=== PATIENT | male | born 1930 | race Caucasian/White ===

== ENCOUNTER 2016-10-01 12:04 | Inpatient (IN) | payer MEDICARE, OTHER ==
[2016-10-01] MEDS ORDERED: BUDESONIDE 0.5MG/2ML AMPUL.NEB NEB ONE (12:11)
[2016-10-01] MEDS ORDERED: IPRATROPIUM/ALBUTEROL SULFATE 3 ML AMPUL.NEB NEB ONE ×2 (12:11→12:22)
[2016-10-01] MEDS: BUDESONIDE 0.5MG/2ML AMPUL.NEB NEB SCH ×4 (12:30→23:58)
[2016-10-01 12:31] LABS: BASOPHILS % 0.6 (0.0-1.5); EOSINOPHILS % 2.8 % (0.0-6.8); MEAN CORPUSCULAR VOLUME 88.6 fl (80.0-100.0); MONOCYTES % 4.4 % (0.0-11.0); NEUTROPHILS # 7.8 # k/uL (1.4-7.7)
[2016-10-01 12:42] LABS: eGFR (African) > 60; eGFR (Non-African) > 60
[2016-10-01] MEDS ORDERED: methylPREDNISolone SOD SUCC 125 MG/2 ML VIAL IVP ONE (13:32)
[2016-10-01] MEDS ORDERED: ALBUTEROL SULFATE 2.5 MG/3 ML AMPUL.NEB NEB ONE (13:32)
--- NOTE | 2016-10-01 14:07 | ED Physician Documentation ---
Dyspnea - HISTORIAN Historian: other ([facility] records) - HPI Stated Complaint: SOA Chief Complaint: Dyspnea Additional Information: fever, soa at [facility] Onset: hours (4) Duration: continues in ED Initiating Event: other (suspected pneumonia) Severity: moderate Exacerbated By: nothing Associated Symptoms: fever Further Comments: no - ROS CONST: weakness EYES/ENT: none GI/: none NEURO/PSYCH: denies: headache MS/SKIN/LYMPH: none - PAST HX Lung Disease: COPD Cardiac Disease: CAD PE Risk Factors: hypertension Other History: other (ortho, cardiac stenting, cardaic ablation) Immunizations: referred to PCP Allergies/Adverse Reactions: Allergies Allergy/AdvReac Type Severity Reaction Status Date / Time aspirin Allergy Verified 10/01/16 12:29 Home Medications: Ambulatory Orders Medication Instructions Recorded Albuterol Sulfate [Albuterol 1 inh INH TID PRN 10/01/16 Sulfate] Carvedilol [Coreg] 3.125 mg PO BID 10/01/16 Cholecalciferol [Vitamin D-3] 3,000 units PO DAILY 10/01/16 Furosemide [Furosemide] 20 mg PO BID 10/01/16 Ipratropium/Albuterol Sulfate 3 ml INH BID 10/01/16 [Duoneb] Levothyroxine Sodium [Synthroid] 125 mcg PO DAILY 10/01/16 Lisinopril [Lisinopril] 2.5 mg PO DAILY 10/01/16 Pregabalin [Lyrica] 75 mg PO BID 10/01/16 Ropinirole HCl [Requip] 0.5 mg PO TID 10/01/16 Tiotropium [place] [Spiriva] 2 inh IH QD 10/01/16 Tramadol HCl [Ultram] 50 mg PO TID PRN 10/01/16 - SOCIAL HX Smoking History: quit greater than 1 year Alcohol Use: none Drug Use: none - FAMILY HX Family History: no significant history - VITAL SIGNS Vital Signs: Vital Signs Temp Pulse Resp BP Pulse Ox 101 F H 120 H 30 H 85/57 80 L 10/01/16 12:05 10/01/16 12:05 10/01/16 12:05 10/01/16 12:05 10/01/16 12:05 - REVIEWED ASSESSMENTS Nursing Assessment Reviewed: Yes Vitals Reviewed: Yes Progress - Results/Orders Results/Orders: cbc, cmp, ua, trop, ekg, cxr, abg ordered - Progress Progress: [facility] Gotti - admitted to inpatient Critical Care Note - Critical Care Note Total Time (mins): 0 ED Results Lab/Radiology - Lab Results Lab Results: Lab Results 10/01/16 10/01/16 10/01/16 12:25 12:25 12:25 WBC 10.60 K/ul K/ul (4.00-12.00) RBC 4.22 M/ul M/ul (3.90-5.20) Hgb 12.6 g/dL g/dL (12.0-18.0) Hct 37.4 % % (37.0-53.0) MCV 88.6 fl fl (80.0-100.0) MCH 30.0 pg pg (28.0-34.0) MCHC 33.8 g/dL g/dL (30.0-36.0) RDW 14.8 % H % (11.3-14.3) Plt Count 234 K/mm3 K/mm3 (130-400) Neut % (Auto) 73.7 % % (39.0-79.0) Lymph % (Auto) 17.9 % % (16.0-50.0) [place] % (Auto) 4.4 % % (0.0-11.0) Eos % (Auto) 2.8 % % (0.0-6.8) Baso % (Auto) 0.6 (0.0-1.5) Neut # (Auto) 7.8 # k/uL H # k/uL (1.4-7.7) Lymph # (Auto) 1.9 # k/uL # k/uL (0.6-4.0) [place] # (Auto) 0.5 # k/uL # k/uL (0.0-0.9) Eos # (Auto) 0.3 # k/uL # k/uL (0.0-0.6) Baso # (Auto) 0.1 # k/uL # k/uL (0.0-0.5) Reactive Lymphs % 0.6 % % (0.0-5.0) Reactive Lymphs # 0.1 # k/uL # k/uL (0.0-0.8) Sodium 130 mmol/L L mmol/L (136-145) Potassium 4.5 mmol/L mmol/L (3.5-5.0) Chloride 90 mmol/L L mmol/L (98-110) Carbon Dioxide 34 mmol/L H mmol/L (20-32) BUN 21 mg/dL mg/dL (10-26) Creatinine 1.1 mg/dL mg/dL (0.4-1.5) Estimated Creat Clear 76 Est GFR ( Amer) > 60 (60 - ) Est GFR (Non-Af Amer) > 60 (60 - ) Glucose 119 mg/dL H mg/dL (70-99) Calcium 9.8 mg/dL mg/dL (8.5-10.5) Total Bilirubin 0.7 mg/dL mg/dL (0.2-1.2) AST 19 U/L U/L (0-41) ALT 11 U/L U/L (0-45) Alkaline Phosphatase 69 U/L U/L (46-116) Troponin I < 0.03 ng/mL L ng/mL (0.03-0.06) Total Protein 8.7 g/dL H g/dL (6.0-8.5) Albumin 4.7 g/dL g/dL (3.0-5.5) - Radiology Radiology Impressions: cxr copd - Orders Orders: ED Orders Category Date Time Status Place IV Lock 1T Care 10/01/16 12:22 Active CHEST 1 VIEW [RAD] Routine Exams 10/01/16 Ordered ARTERIAL BLOOD GAS Stat Lab 10/01/16 12:15 Ordered BLOOD CULTURE Routine Lab 10/01/16 12:40 Received CBC/PLATELET/DIFF Routine Lab 10/01/16 12:25 Completed CMP Routine Lab 10/01/16 12:25 Completed TROPONIN I (cTnI) Routine Lab 10/01/16 12:25 Completed URINALYSIS Routine Lab 10/01/16 12:21 Ordered Albuterol Sulfate [Ventolin] Med 10/01/16 13:32 Discontinued 2.5 mg NEB NOW ONE Budesonide [Pulmicort] Med 10/01/16 12:11 Discontinued 0.5 mg NEB .STK-MED ONE Budesonide [Pulmicort] Med 10/01/16 13:00 Ordered 0.5 mg NEB BID Ipratropium/Albuterol Sulfate [Duoneb] Med 10/01/16 12:11 Discontinued 3 ml NEB .STK-MED ONE Ipratropium/Albuterol Sulfate [Duoneb] Med 10/01/16 12:22 Discontinued 3 ml NEB NOW ONE methylPREDNISolone SOD SUCC [Solu-MEDROL] Med 10/01/16 13:32 Discontinued 125 mg IVP NOW ONE Oxygen Daily Oxygen 10/01/16 12:30 Ordered EKG WITH COMPARISON Routine Ther 10/01/16 Ordered Transfer Routine Transfer 10/01/16 Ordered Dyspnea Physical Exam - EXAM General Appearance: alert, moderate distress EENT: eye inspection normal, ENT inspection normal, pharynx normal, no signs of dehydration, JOCELINE, no nystagmus, TM's nml Neck: nml inspection Respiratory: wheezes CVS: reg. rate & rhythm, no murmur Abdomen: non-tender, no organomegaly, no distention, no ascites Skin: color nml, no rash, diaphoresis. No: cyanosis Extremities: non-tender, normal range of motion, no evidence of injury, no edema Neuro/Psych: oriented x3, CN's nml as tested, motor nml, sensation nml Discharge Clincal Impression: COPD exacerbation Home Medications: Ambulatory Orders Albuterol Sulfate [Albuterol Sulfate] 1 inh INH TID PRN 10/01/16 Carvedilol [Coreg] 3.125 mg PO BID 10/01/16 Cholecalciferol [Vitamin D-3] 3,000 units PO DAILY 10/01/16 Furosemide [Furosemide] 20 mg PO BID 10/01/16 Ipratropium/Albuterol Sulfate [Duoneb] 3 ml INH BID 10/01/16 Levothyroxine Sodium [Synthroid] 125 mcg PO DAILY 10/01/16 Lisinopril [Lisinopril] 2.5 mg PO DAILY 10/01/16 Pregabalin [Lyrica] 75 mg PO BID 10/01/16 Ropinirole HCl [Requip] 0.5 mg PO TID 10/01/16 Tiotropium [place] [Spiriva] 2 inh IH QD 10/01/16 Tramadol HCl [Ultram] 50 mg PO TID PRN 10/01/16 Condition: Stable Disposition: 09 ADMITTED INPATIENT Decision to Admit: [id number] Date of Decison to Admit: 10/01/16 Decision Time: 13:15
--- NOTE | 2016-10-01 14:22 | Diagnostic Imaging Report ---
BOLIVAR HINKLE [facility] [address] [facility].[address] [address] Report Submission Date: Oct 01, 2016 12:44:43 PM CDT Patient Study Name: ALLEN BELLE Date: Oct 01, 2016 12:23:52 PM CDT Modality Type: CR Gender: M Description: CHEST : 34 Institution: [facility] Physician: BOLIVAR HINKLE Examination: Portable chest History: Dyspnea Findings: Single view of the chest demonstrates a hypoventilated is but or effort. Crowding of the parenchymal interstitium. No obvious blunting of the costophrenic margins. Osseous structures are appropriate for age Impression: Poor inspiratory effort with vascular/interstitial prominence. Consider obtaining a formal PA and lateral film to better evaluate. Electronically signed on Oct 01, 2016 12:44:43 PM CDT by: Renzo ARMAS
[2016-10-01] MEDS ORDERED: IPRATROPIUM/ALBUTEROL SULFATE 3 ML AMPUL.NEB NEB PRN (14:30)
[2016-10-01] MEDS ORDERED: traMADol HCL 50 MG TABLET PO PRN (14:30)
[2016-10-01] MEDS ORDERED: NORMAL SALINE ADD-VANTAGE 50 ML IV ONE (14:59)
[2016-10-01] MEDS ORDERED: cefTRIAXone SODIUM ADVANTAGE 1 GM VIAL.PORT IV ONE (14:59)
[2016-10-01] MEDS: cefTRIAXone SODIUM ADVANTAGE 1 GM in NORMAL SALINE ADD-VANTAGE 50 ML IV SCH (15:00)
[2016-10-01] MEDS: 0.9 % SODIUM CHLORIDE 1,000 ML IV SCH (15:00)
[2016-10-01] MEDS: ENOXAPARIN SODIUM 30 MG/0.3 ML DISP.SYRIN SQ SCH (15:00)
[2016-10-01 15:35] VITALS: BMI 36.5
[2016-10-01] MEDS: AZITHROMYCIN 500 MG in 0.9 % SODIUM CHLORIDE 250 ML IV SCH (15:45)
[2016-10-01] MEDS ORDERED: 0.9 % SODIUM CHLORIDE 250 ML IV ONE (16:10)
[2016-10-01] MEDS: LEVOTHYROXINE SODIUM 100 MCG TABLET PO SCH (16:10)
[2016-10-01] MEDS ORDERED: AZITHROMYCIN 500 MG VIAL IV ONE (16:11)
[2016-10-01] MEDS: rOPINIRole HCL 1 MG TABLET PO SCH (17:14)
--- NOTE | 2016-10-01 18:29 | History and Physical Report ---
History of Present Illnes - History of Present Illness Reason for Visit: dyspnea History of Present Illness: 86yo white male with a history of COPD. This AM was found to be running a fever and started to have some increasing SOB/dyspnea. Started a productive cough of some green phlegm, denied any hemphysis. Nursing staff note some increasing rhonchi and wheezing and required increasing amounts of supplementle oxygen to maintain SaO2 > 90%. Patient was brought to the Ed for evaluation. X-ray did not show any pneumonia but was felt to have an early phuemonia or bronchitis with exacerbation of COPD. Patient admitted for further evaluation and treatment. 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, s/p subdural hematoma) Musculoskeletal: Osteoarthritis ENT: Allergic rhinitis, Other (macular degeneration) Endocrine: Hypothyroidism Dermatology: Other (nonsquamous cell Ca ) - Past Surgical History Past Surgical History: Other (cardiac stenting, cardiac ablation), Other ( facial reconstruction, R shoulder arthroscopy) - Past Family History Father Family History: (93yo of advanced age) Mother Family History: (89 of advanced age) brothers Family History: (4 from unkown cause, one living) Sisters Family History: (# deased from unkown cause) - Past Social History Smoke: # pack years (30), Quit 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 negative: Weakness, Malaise Eyes: negative: pain, vision change, eyelid inflammation ENT: Nose Discharge (clear). negative: Ear Pain, Ear Discharge, Nose Pain, Nose Congestion, Mouth Pain, Mouth Swelling, Throat Pain, Throat Swelling Respiratory: Cough, Shortness of Breath, SOB with Excertion, Sputum (green), Wheezing. negative: Dry, Hemoptysis, Pleuritic Pain Cardiovascular: negative: Chest Pain, Palpitations, Paroxysmal Noc. Dyspnea, Edema, Light Headedness Gastrointestinal: negative: Nausea, Vomiting, Abdominal Pain, Diarrhea, Constipation, Melena, Hematochezia Genitourinary: negative: Dysuria, Frequency, Incontinence, Hematuria, Retention Musculoskeletal: Back Pain. negative: Neck Pain, Shoulder Pain, Hand Pain, Leg Pain Skin: negative: Rash Neurological: Confusion. negative: Weakness, Numbness, Incoordination, Change in Speech - Medications/Allergies Allergies/Adverse Reactions: Allergies Allergy/AdvReac Type Severity Reaction Status Date / Time aspirin Allergy Verified 10/01/16 12:29 Home Medications: Home Medications Albuterol Sulfate [Albuterol Sulfate] 1 inh INH TID PRN 10/01/16 Carvedilol [Coreg] 3.125 mg PO BID 10/01/16 Cholecalciferol [Vitamin D-3] 3,000 units PO DAILY 10/01/16 Furosemide [Furosemide] 20 mg PO BID 10/01/16 Ipratropium/Albuterol Sulfate [Duoneb] 3 ml INH BID 10/01/16 Levothyroxine Sodium [Synthroid] 125 mcg PO DAILY 10/01/16 Lisinopril [Lisinopril] 2.5 mg PO DAILY 10/01/16 Pregabalin [Lyrica] 75 mg PO BID 10/01/16 Ropinirole HCl [Requip] 0.5 mg PO TID 10/01/16 Tiotropium [place] [Spiriva] 2 inh IH QD 10/01/16 Tramadol HCl [Ultram] 50 mg PO TID PRN 10/01/16 Current Inpatient Medications: Current Inpatient Medications Albuterol/Ipratropium (Duoneb) 3 ml NEB Q4 PRN PRN Reason: Wheezing Budesonide (Pulmicort) 0.5 mg NEB BID [facility] Last Admin: 10/01/16 12:30 Dose: 0.5 mg Budesonide (Pulmicort) 0.5 mg NEB BID [facility] Last Admin: 10/01/16 14:34 Dose: Not Given Carvedilol (Coreg) 3.125 mg PO BID [facility] Cholecalciferol (Vitamin D-3) unit PO DAILY [facility] Enoxaparin Sodium (Lovenox) 30 mg SQ QD [facility] Stop: 10/14/16 14:31 Last Admin: 10/01/16 15:00 Dose: 30 mg Furosemide (Lasix) 20 mg PO BID [facility] Azithromycin 500 mg/ Sodium (Chloride) 250 mls @ 125 mls/hr IV Q24H [facility] Stop: 10/11/16 14:29 Last Admin: 10/01/16 15:45 Dose: 125 mls/hr Ceftriaxone Sodium 1 gm/ (Sodium Chloride) 50 mls @ 100 mls/hr IV QD [facility] Last Admin: 10/01/16 15:00 Dose: 100 mls/hr Sodium Chloride (Normal Saline) 1,000 mls @ 42 mls/hr IV Q10H [facility] Last Admin: 10/01/16 15:00 Dose: 42 mls/hr Levothyroxine Sodium (Synthroid) 125 mcg PO 0700 [facility] Last Admin: 10/01/16 16:10 Dose: Not Given Lisinopril (Prinivil) 2.5 mg PO DAILY [facility] Methylprednisolone Sodium Succinate (Solu-Medrol) 125 mg IVP Q12 [facility] Pregabalin (Lyrica) 75 mg PO BID [facility] Ropinirole HCl (Requip) 0.5 mg PO TID [facility] Last Admin: 10/01/16 17:14 Dose: 0.5 mg Tramadol HCl (Ultram) 50 mg PO TID PRN PRN Reason: PAIN Exam - Exam Vital Signs: Vital Signs (72 hours) 10/01/16 10/01/16 10/01/16 14:09 14:30 15:30 Temperature 98.4 F Pulse Rate 113 H 106 H Pulse Rate [ 110 H Left] Respiratory 20 Rate Blood Pressure 83/53 [Left Arm] O2 Sat by Pulse 92 92 Oximetry 10/01/16 10/01/16 10/01/16 16:00 17:00 18:00 Temperature 96.2 F L Pulse Rate 102 H 112 H 101 H Pulse Rate [ 107 H Left] Respiratory 20 Rate Blood Pressure 84/49 [Left Arm] O2 Sat by Pulse 92 Oximetry General: Alert, Oriented to Person, Cooperative, Mild distress. No: Oriented to Place, Oriented to Time HEENT: Atraumatic, PERRLA, EOMI, Mouth Mucous membr. moist/[place], Nose Mucous membr. moist/[place], Poor Dentition Neck: Normal Range of Motion Carotids: WNL Thyroid: WNL Lungs: Normal air movement, Speaks full Sentences, Wheezes, Rales, Rhonchi. No : Prolonged Expiration Cardiovascular: Regular rate (occasional PAC), Normal S1, Normal S2, No murmurs Murmur: No: Systolic Murmur Abdomen: Normal bowel sounds, Soft, No tenderness, No hepatospenomegaly, No masses Integumentary: Normal, [place], Warm, Dry Extremities: No clubbing, No cyanosis, No edema, Normal pulses, No tenderness/ swelling Neurological: Normal gait, Normal speech, Strength Equal Bilat, Normal tone, Sensation intact, Cranial nerves 3-12 NL, Reflexes 2+ Psych/Mental Status: Mood NL, Appropriate Affect. No: Mental status NL ( confused), Intact Judgment Assessment/Plan - Assessment/Plan (1) CAD (coronary artery disease) Status: Acute Current Visit: Yes (2) Peripheral neuropathy Status: Acute Current Visit: Yes (3) Hypothyroidism Status: Acute Current Visit: Yes (4) Generalized OA Status: Acute Current Visit: Yes (5) Hx of supraventricular tachycardia Status: Acute Current Visit: Yes VTE Assessment - RISK FACTOR SCORE VTE RISK FACTOR SCORES: AGE OVER 60 YEARS, ACUTE RESPIRATORY FAILURE/SEVERE COPD , ANTICIPATED BED CONFINEMENT OR IMMOBILIZATION > 24 HOURS - RISK VTE HIGH RISK: SCORE OF 3-4 (RISK PROXIMAL DVT 4-8%) PROPHYLAXIS NEEDED
[2016-10-01] MEDS ORDERED: SALINE FLUSH 10 ML DISP.SYRIN IVF ONE (19:21)
[2016-10-01] MEDS: PREGABALIN 50 MG CAPSULE PO SCH ×2 (19:38→19:59)
[2016-10-01] MEDS: CARVEDILOL 6.25 MG TABLET PO SCH (19:39)
[2016-10-01] MEDS: FUROSEMIDE 20 MG TABLET PO SCH (19:40)
[2016-10-01] MEDS: IPRATROPIUM/ALBUTEROL SULFATE 3 ML AMPUL.NEB NEB SCH (20:47)
[2016-10-01] MEDS ORDERED: PREGABALIN 50 MG CAPSULE PO SCH (21:00)
[2016-10-01] MEDS: methylPREDNISolone SOD SUCC 125 MG/2 ML VIAL IVP SCH (21:47)
[2016-10-02] MEDS: 0.9 % SODIUM CHLORIDE 1,000 ML IV SCH ×3 (00:56→19:53)
[2016-10-02] MEDS: IPRATROPIUM/ALBUTEROL SULFATE 3 ML AMPUL.NEB NEB SCH ×6 (04:25→20:19)
[2016-10-02] MEDS ORDERED: LEVOTHYROXINE SODIUM 25 MCG TABLET ONE (05:13)
[2016-10-02] MEDS: LEVOTHYROXINE SODIUM 100 MCG TABLET PO SCH (05:42)
[2016-10-02 06:05] LABS: BASOPHILS % 0.1 (0.0-1.5); EOSINOPHILS % 0.1 % (0.0-6.8); MEAN CORPUSCULAR HEMOGLOBIN 29.6 pg (28.0-34.0); MEAN CORPUSCULAR VOLUME 88.6 fl (80.0-100.0); MONOCYTES % 0.8 % (0.0-11.0); NEUTROPHILS # 7.6 # k/uL (1.4-7.7)
[2016-10-02 06:23] LABS: eGFR (African) > 60; eGFR (Non-African) > 60
--- NOTE | 2016-10-02 07:09 | Diagnostic Imaging Report ---
BOLIVAR WILLAMS [facility] [address] [facility] [address] [place], [place]. [address] Report Submission Date: Oct 02, 2016 7:04:03 AM CDT Patient Study Name: ALLEN BELLE Date: Oct 02, 2016 6:27:11 AM CDT Modality Type: CR Gender: M Description: CHEST : 34 Institution: [facility] Physician: BOLIVAR HINKLE 2 views of the chest History: LOW 02 RATE Comparison: October 01, 2016 Heart is normally from size. Prominent pulmonary hilum. Scarring in the right upper lobe again noted. Infrahilar infiltrate/atelectasis is more prominent on the right. Emphysema. Bibasilar atelectasis. No pleural effusion. No acute osseous pathology Impression: 1. Infrahilar infiltrate/atelectasis persists, right greater than left. No pleural effusion. 2. Right upper lobe scarring/ opacity with spiculation, underlying malignancy is difficult to exclude. Consider elective CT chest Electronically signed on Oct 02, 2016 7:04:03 AM CDT by: Sydnie ARMAS
[2016-10-02] MEDS: CARVEDILOL 6.25 MG TABLET PO SCH ×2 (08:42→19:46)
[2016-10-02] MEDS: FUROSEMIDE 20 MG TABLET PO SCH ×2 (08:47→19:47)
[2016-10-02] MEDS: rOPINIRole HCL 1 MG TABLET PO SCH ×3 (08:48→17:04)
[2016-10-02] MEDS: LISINOPRIL 2.5 MG TABLET PO SCH (08:49)
[2016-10-02] MEDS: PREGABALIN 50 MG CAPSULE PO SCH ×2 (09:01→19:48)
[2016-10-02] MEDS: CHOLECALCIFEROL 1,000 UNIT TABLET PO SCH (09:02)
[2016-10-02] MEDS: methylPREDNISolone SOD SUCC 125 MG/2 ML VIAL IVP SCH (09:17)
[2016-10-02] MEDS: BUDESONIDE 0.5MG/2ML AMPUL.NEB NEB SCH ×2 (09:23→20:18)
[2016-10-02] MEDS: cefTRIAXone SODIUM ADVANTAGE 1 GM in NORMAL SALINE ADD-VANTAGE 50 ML IV SCH (13:29)
[2016-10-02] MEDS: ENOXAPARIN SODIUM 30 MG/0.3 ML DISP.SYRIN SQ SCH (13:30)
[2016-10-02] MEDS: AZITHROMYCIN 500 MG in 0.9 % SODIUM CHLORIDE 250 ML IV SCH (14:17)
--- NOTE | 2016-10-02 16:09 | Inpatient Progress Note ---
Subjective - Required Recertification Statement I anticipate X number of days because-include discharge plan: 1 - Review of Systems Events since last encounter: Patient states that he is doing better today. Still has a cough but is less productive. Is still having some dyspnea with walking. Requires oxygen at 2 liters. Has been slightly more confused today. Objective - Exam Vitals and I&O: Vital Signs Temp 96.8 F L 10/02/16 14:00 Pulse 93 H 10/02/16 14:00 Resp 20 10/02/16 14:00 BP 91/62 10/02/16 14:00 Pulse Ox 92 10/02/16 14:00 Intake & Output 10/01/16 10/02/16 10/02/16 23:59 11:59 23:59 Intake Total 240 2280 2160 Output Total 600 Balance 240 1680 2160 Weight 132.449 kg 132.449 kg Intake: IV 1440 1440 Right Antecubital 1440 1440 Oral 240 840 720 Output: Urine 600 Other: Voiding Method Urinal # Voids 1 General: Alert, Oriented to Person, Cooperative. No: Oriented to Place, Oriented to Time Neck: Supple, No JVD Lungs: Normal air movement, Speaks full Sentences, Rales (right base), Rhonchi ( bilat). No: Prolonged Expiration Cardiovascular: Regular rate, Normal S1, Normal S2 Abdomen: Normal bowel sounds, Soft, No tenderness - Results Results: Laboratory Results WBC 8.70 K/ul (4.00-12.00) 10/02/16 06:00 RBC 4.05 M/ul (3.90-5.20) 10/02/16 06:00 Hgb 12.0 g/dL (12.0-18.0) 10/02/16 06:00 Hct 35.9 % (37.0-53.0) L 10/02/16 06:00 MCV 88.6 fl (80.0-100.0) 10/02/16 06:00 MCH 29.6 pg (28.0-34.0) 10/02/16 06:00 MCHC 33.4 g/dL (30.0-36.0) 10/02/16 06:00 RDW 14.8 % (11.3-14.3) H 10/02/16 06:00 Plt Count 214 K/mm3 (130-400) 10/02/16 06:00 Neut % (Auto) 87.2 % (39.0-79.0) H 10/02/16 06:00 Lymph % (Auto) 11.6 % (16.0-50.0) L 10/02/16 06:00 [place] % (Auto) 0.8 % (0.0-11.0) 10/02/16 06:00 Eos % (Auto) 0.1 % (0.0-6.8) 10/02/16 06:00 Baso % (Auto) 0.1 (0.0-1.5) 10/02/16 06:00 Neut # (Auto) 7.6 # k/uL (1.4-7.7) 10/02/16 06:00 Lymph # (Auto) 1.0 # k/uL (0.6-4.0) 10/02/16 06:00 [place] # (Auto) 0.1 # k/uL (0.0-0.9) 10/02/16 06:00 Eos # (Auto) 0.0 # k/uL (0.0-0.6) 10/02/16 06:00 Baso # (Auto) 0.0 # k/uL (0.0-0.5) 10/02/16 06:00 Reactive Lymphs % 0.1 % (0.0-5.0) 10/02/16 06:00 Reactive Lymphs # 0.0 # k/uL (0.0-0.8) 10/02/16 06:00 Sodium 131 mmol/L (136-145) L 10/02/16 06:00 Potassium 4.5 mmol/L (3.5-5.0) 10/02/16 06:00 Chloride 92 mmol/L (98-110) L 10/02/16 06:00 Carbon Dioxide 33 mmol/L (20-32) H 10/02/16 06:00 BUN 28 mg/dL (10-26) H 10/02/16 06:00 Creatinine 1.0 mg/dL (0.4-1.5) 10/02/16 06:00 Estimated Creat Clear 103 10/02/16 06:00 Est GFR ( Amer) > 60 (60-) 10/02/16 06:00 Est GFR (Non-Af Amer) > 60 (60-) 10/02/16 06:00 Glucose 166 mg/dL (70-99) H 10/02/16 06:00 Calcium 9.9 mg/dL (8.5-10.5) 10/02/16 06:00 Total Bilirubin 0.7 mg/dL (0.2-1.2) 10/01/16 12:25 AST 19 U/L (0-41) 10/01/16 12:25 ALT 11 U/L (0-45) 10/01/16 12:25 Alkaline Phosphatase 69 U/L (46-116) 10/01/16 12:25 Troponin I < 0.03 ng/mL (0.03-0.06) L 10/01/16 12:25 Total Protein 8.7 g/dL (6.0-8.5) H 10/01/16 12:25 Albumin 4.7 g/dL (3.0-5.5) 10/01/16 12:25 Assessment/Plan - Assessment/Plan (1) Dementia Status: Chronic Current Visit: Yes Qualifiers: Alzheimer's disease onset: late-onset Assessment: stable, will monitor confusion. (2) COPD exacerbation Status: Acute Current Visit: Yes Assessment: Continue with present treatment.
[2016-10-02] MEDS: methylPREDNISolone SOD SUCC 40 MG/ML VIAL IVP SCH ×2 (16:37→19:48)
[2016-10-02] MEDS ORDERED: SALINE FLUSH 10 ML DISP.SYRIN IVF ONE (19:45)
[2016-10-03] MEDS: IPRATROPIUM/ALBUTEROL SULFATE 3 ML AMPUL.NEB NEB SCH ×6 (02:06→20:46)
[2016-10-03] MEDS ORDERED: SALINE FLUSH 10 ML DISP.SYRIN IVF ONE ×4 (04:30→22:17)
[2016-10-03] MEDS: LEVOTHYROXINE SODIUM 25 MCG TABLET PO SCH (06:03)
[2016-10-03] MEDS: LEVOTHYROXINE SODIUM 100 MCG TABLET PO SCH (06:03)
[2016-10-03 06:28] LABS: BASOPHILS % 0.2 (0.0-1.5); EOSINOPHILS % 0.1 % (0.0-6.8); MEAN CORPUSCULAR HEMOGLOBIN 29.5 pg (28.0-34.0); MEAN CORPUSCULAR VOLUME 88.6 fl (80.0-100.0); MONOCYTES % 3.6 % (0.0-11.0); NEUTROPHILS # 13.2 # k/uL (1.4-7.7)
[2016-10-03 06:44] LABS: eGFR (African) > 60; eGFR (Non-African) > 60
--- NOTE | 2016-10-03 07:08 | Diagnostic Imaging Report ---
OTF KELLEY [facility] [address] [facility].[address] [address] Report Submission Date: Oct 03, 2016 6:57:26 AM CDT Patient Study Name: ALLEN BELLE Date: Oct 03, 2016 6:26:41 AM CDT Modality Type: CR Gender: M Description: CHEST : 34 Institution: [facility] Physician: OTF KELLEY 2 views of the chest History: Dyspnea Comparison: October 02, 2016 Heart is normal in size. Aortic calcification is present. Bibasilar infiltrate/ atelectasis persist. Emphysema Prominent azygous fissure. Right upper lobe perihilar scarring /interstitial thickening again noted. No acute osseous pathology Impression: 1. No significant change. 2. Emphysema with basilar predominant fibrotic changes 3. Bilateral lower lobe infiltrate/atelectasis. 4. Right upper lobe perihilar scarring /interstitial thickening again noted without change, attention on followup. Electronically signed on Oct 03, 2016 6:57:26 AM CDT by: Sydnie ARMAS
--- NOTE | 2016-10-03 09:08 | Inpatient Progress Note ---
Subjective - Required Recertification Statement I anticipate X number of days because-include discharge plan: 1 - Review of Systems Subjective: Patient states that he is doing ok. Breathing seems to be better. No cough or wheezing. Patient appears to have flipped into atrial fib with a RVR. No chest pain noted. Patient voices no other complaints. General: Denies: Chills Pulmonary: Dyspnea (improved) Cardiovascular: Denies: Chest Pain, Palpitations Gastrointestinal: Denies: Nausea, Vomiting Objective - Exam Vitals and I&O: Vital Signs Temp 98.6 F 10/03/16 06:00 Pulse 128 H 10/03/16 06:00 Resp 20 10/03/16 06:00 BP 113/73 10/03/16 06:00 Pulse Ox 96 10/03/16 06:00 Intake & Output 10/02/16 10/02/16 10/03/16 11:59 23:59 11:59 Intake Total 2280 3360 1360 Output Total 600 Balance 1680 3360 1360 Weight 132.449 kg 124.284 kg Intake: IV 1440 2400 Right Antecubital 1440 2400 Oral 675 972 1483 Output: Urine 600 Other: Voiding Method Urinal # Voids 1 1,550 General: Alert, Oriented to Person, Cooperative, No acute distress. No: Oriented to Place, Oriented to Time Neck: Supple Lungs: Normal air movement, Speaks full Sentences, Rhonchi (scattered bialt) Cardiovascular: Normal S1, Normal S2, No murmurs, Irregularly Irregular, Tachycardia Abdomen: Normal bowel sounds, Soft, No tenderness Skin: Normal, [place], Warm, Dry Neurological: Normal speech, Strength Equal Bilat, Normal tone Psych/Mental Status: Mental status NL (at baseline). No: Intact Judgment - Results Results: Laboratory Results WBC 14.80 K/ul (4.00-12.00) H 10/03/16 06:10 RBC 3.85 M/ul (3.90-5.20) L 10/03/16 06:10 Hgb 11.4 g/dL (12.0-18.0) L 10/03/16 06:10 Hct 34.1 % (37.0-53.0) L 10/03/16 06:10 MCV 88.6 fl (80.0-100.0) 10/03/16 06:10 MCH 29.5 pg (28.0-34.0) 10/03/16 06:10 MCHC 33.4 g/dL (30.0-36.0) 10/03/16 06:10 RDW 14.9 % (11.3-14.3) H 10/03/16 06:10 Plt Count 225 K/mm3 (130-400) 10/03/16 06:10 Neut % (Auto) 89.6 % (39.0-79.0) H 10/03/16 06:10 Lymph % (Auto) 6.1 % (16.0-50.0) L 10/03/16 06:10 [place] % (Auto) 3.6 % (0.0-11.0) 10/03/16 06:10 Eos % (Auto) 0.1 % (0.0-6.8) 10/03/16 06:10 Baso % (Auto) 0.2 (0.0-1.5) 10/03/16 06:10 Neut # (Auto) 13.2 # k/uL (1.4-7.7) H 10/03/16 06:10 Lymph # (Auto) 0.9 # k/uL (0.6-4.0) 10/03/16 06:10 [place] # (Auto) 0.5 # k/uL (0.0-0.9) 10/03/16 06:10 Eos # (Auto) 0.0 # k/uL (0.0-0.6) 10/03/16 06:10 Baso # (Auto) 0.0 # k/uL (0.0-0.5) 10/03/16 06:10 Reactive Lymphs % 0.5 % (0.0-5.0) 10/03/16 06:10 Reactive Lymphs # 0.1 # k/uL (0.0-0.8) 10/03/16 06:10 Sodium 134 mmol/L (136-145) L 10/03/16 06:10 Potassium 4.6 mmol/L (3.5-5.0) 10/03/16 06:10 Chloride 98 mmol/L (98-110) 10/03/16 06:10 Carbon Dioxide 29 mmol/L (20-32) 10/03/16 06:10 BUN 27 mg/dL (10-26) H 10/03/16 06:10 Creatinine 0.9 mg/dL (0.4-1.5) 10/03/16 06:10 Estimated Creat Clear 107 10/03/16 06:10 Est GFR ( Amer) > 60 (60-) 10/03/16 06:10 Est GFR (Non-Af Amer) > 60 (60-) 10/03/16 06:10 Glucose 150 mg/dL (70-99) H 10/03/16 06:10 Calcium 9.1 mg/dL (8.5-10.5) 10/03/16 06:10 Total Bilirubin 0.2 mg/dL (0.2-1.2) 10/03/16 06:10 AST 24 U/L (0-41) 10/03/16 06:10 ALT 25 U/L (0-45) 10/03/16 06:10 Alkaline Phosphatase 53 U/L (46-116) 10/03/16 06:10 Troponin I < 0.03 ng/mL (0.03-0.06) L 10/01/16 12:25 Total Protein 7.5 g/dL (6.0-8.5) 10/03/16 06:10 Albumin 4.0 g/dL (3.0-5.5) 10/03/16 06:10 Chest x-ray: ? bilateral atelectisis vs infiltrate. No significant change. Assessment/Plan - Assessment/Plan (1) CAD (coronary artery disease) Status: Chronic Current Visit: Yes Qualifiers: Coronary Disease-Associated Artery/Lesion type: [place] artery [place] vs. transplanted heart: [place] heart Associated angina: without angina Qualified Code(s): I25.10 - Atherosclerotic heart disease of [place] coronary artery without angina pectoris Assessment: stable (2) Generalized OA Status: Chronic Current Visit: Yes Assessment: stable (3) Hx of supraventricular tachycardia Status: Resolved Current Visit: No (4) COPD exacerbation Status: Acute Current Visit: Yes Assessment: improved, have decrease steroids. BS have been high, will get A1c but suspect due to steroids. Leukocytosis probably due to steroids. (5) Dementia Status: Chronic Current Visit: Yes Qualifiers: Alzheimer's disease onset: late-onset Comment: stable (6) Atrial fibrillation with rapid ventricular response Status: Acute Current Visit: Yes Assessment: Will get d dimer to r/o DVT with PE. Will check TSH, patient has a history of hypothyroidism on levothyroxine. (7) Low blood pressure, not hypotension Status: Acute Current Visit: Yes Assessment: may be related to a fib, will hold lasix, stop lisinopril. Patient is on coreg, may switch to metoprolol.
[2016-10-03] MEDS: BUDESONIDE 0.5MG/2ML AMPUL.NEB NEB SCH ×2 (09:40→20:51)
[2016-10-03] MEDS: FUROSEMIDE 20 MG TABLET PO SCH (09:51)
[2016-10-03] MEDS: rOPINIRole HCL 1 MG TABLET PO SCH ×3 (09:56→17:58)
[2016-10-03] MEDS: PREGABALIN 50 MG CAPSULE PO SCH ×2 (09:56→19:43)
[2016-10-03] MEDS: CHOLECALCIFEROL 1,000 UNIT TABLET PO SCH (09:56)
[2016-10-03] MEDS: METOPROLOL TARTRATE 50 MG TABLET PO SCH ×2 (09:58→19:43)
[2016-10-03] MEDS: methylPREDNISolone SOD SUCC 40 MG/ML VIAL IVP SCH ×2 (09:59→20:49)
[2016-10-03] MEDS: 0.9 % SODIUM CHLORIDE 1,000 ML IV SCH (10:34)
[2016-10-03] MEDS: CARVEDILOL 6.25 MG TABLET PO SCH (10:35)
[2016-10-03] MEDS: LISINOPRIL 2.5 MG TABLET PO SCH (10:37)
[2016-10-03] MEDS: ENOXAPARIN SODIUM 30 MG/0.3 ML DISP.SYRIN SQ SCH (13:59)
[2016-10-03] MEDS: cefTRIAXone SODIUM ADVANTAGE 1 GM in NORMAL SALINE ADD-VANTAGE 50 ML IV SCH (13:59)
[2016-10-03] MEDS: AZITHROMYCIN 500 MG in 0.9 % SODIUM CHLORIDE 250 ML IV SCH (16:13)
[2016-10-03] MEDS ORDERED: DILTIAZEM HCL 125 MG in 0.9 % SODIUM CHLORIDE 100 ML IV STA (21:16)
[2016-10-03] MEDS ORDERED: DILTIAZEM HCL 125 MG/25ML VIAL ONE (21:42)
[2016-10-03] MEDS ORDERED: 0.9 % SODIUM CHLORIDE 100 ML IV ONE (21:43)
[2016-10-03] MEDS: APIXABAN 2.5 MG TABLET PO ONE ×2 (22:20→22:43)
[2016-10-04] MEDS: IPRATROPIUM/ALBUTEROL SULFATE 3 ML AMPUL.NEB NEB SCH ×6 (03:21→23:45)
[2016-10-04] MEDS: LEVOTHYROXINE SODIUM 25 MCG TABLET PO SCH (06:15)
[2016-10-04] MEDS: LEVOTHYROXINE SODIUM 100 MCG TABLET PO SCH (06:15)
--- NOTE | 2016-10-04 06:18 | Diagnostic Imaging Report ---
OTF KELLEY~ [facility] [address] [facility] [address] [place] [address]. [address] ~ ~ ~ ~ Report Submission Date: Oct 03, 2016 10:23:41 PM CDT Patient ~ Study Name: ALLEN BELLE ~ Date: Oct 03, 2016 9:58:59 PM CDT ~ Modality Type: CT\SR Gender: M ~ Description: CT CHEST W/ CONTRAST : 32 ~ Institution: [facility] Physician: OTF KELLEY ~ ~ ~ ~ CT pulmonary angiogram Clinical history: ~Shortness of breath. ~New onset atrial fibrillation with elevated D-dimer. ~Rule out pulmonary embolus. Contrast administered: ~89 ml of Omnipaque-300. Technique: ~CT pulmonary angiography is performed with intravenous infusion of contrast. ~Sliding coronal and sagittal MIP reconstructions are performed by the technologist. Findings: ~There are dilated air spaces bilaterally consistent with changes of emphysema. ~Bronchiectasis is evident in the lower lung zones. ~Motion artifact blurs the vascular structures in the lung bases. ~Fibrotic changes are seen in the lung apices with calcified granuloma in the left apex. ~There is no mediastinal or hilar mass or significant adenopathy. ~There are small hilar nodes bilaterally. ~Vascular structures enhance normally. ~Lower lobe vessels are difficult to evaluate because of motion artifact but there is no obvious filling defect. ~There is certainly no large or central pulmonary embolus. Impression: 1. ~Chronic changes in the lungs with emphysema, bibasilar bronchiectasis and bilateral apical fibrosis. 2. ~Vascular calcification. 3. ~Motion artifact. 4. ~No evidence of pulmonary embolus. ~ Electronically signed on Oct 03, 2016 10:23:41 PM CDT by: Sahil ARMAS
[2016-10-04] MEDS ORDERED: DILTIAZEM HCL 125 MG in 0.9 % SODIUM CHLORIDE 100 ML IV STA (07:21)
[2016-10-04] MEDS: DILTIAZEM HCL 180 MG CAP.ER.24H PO SCH ×2 (07:27→08:24)
[2016-10-04] MEDS: CHOLECALCIFEROL 1,000 UNIT TABLET PO SCH (09:20)
[2016-10-04] MEDS: PREGABALIN 50 MG CAPSULE PO SCH ×2 (09:20→19:32)
[2016-10-04] MEDS: rOPINIRole HCL 1 MG TABLET PO SCH ×3 (09:20→17:27)
[2016-10-04] MEDS: APIXABAN 2.5 MG TABLET PO SCH ×2 (09:21→19:29)
[2016-10-04] MEDS: BUDESONIDE 0.5MG/2ML AMPUL.NEB NEB SCH ×2 (09:28→23:45)
[2016-10-04] MEDS ORDERED: SALINE FLUSH 10 ML DISP.SYRIN IVF ONE ×5 (09:54→22:54)
[2016-10-04] MEDS: methylPREDNISolone SOD SUCC 40 MG/ML VIAL IVP SCH ×2 (10:20→19:29)
[2016-10-04] MEDS ORDERED: DILTIAZEM HCL 180 MG CAP.ER.24H PO ONE (12:47)
[2016-10-04] MEDS ORDERED: cefTRIAXone SODIUM 1 GM VIAL ONE (14:34)
[2016-10-04] MEDS ORDERED: 0.9 % SODIUM CHLORIDE 50 ML IV ONE (14:35)
[2016-10-04] MEDS: AZITHROMYCIN 500 MG in 0.9 % SODIUM CHLORIDE 250 ML IV SCH (14:43)
[2016-10-04] MEDS: cefTRIAXone SODIUM ADVANTAGE 1 GM in NORMAL SALINE ADD-VANTAGE 50 ML IV SCH (17:18)
[2016-10-04] MEDS: FUROSEMIDE 20 MG TABLET PO SCH (19:30)
[2016-10-04] MEDS: ONDANSETRON HCL/PF 4 MG/ 2ML VIAL IVP PRN (23:00)
[2016-10-05] MEDS: IPRATROPIUM/ALBUTEROL SULFATE 3 ML AMPUL.NEB NEB SCH ×2 (01:29→05:17)
[2016-10-05] MEDS ORDERED: DIGOXIN 250MCG/1ML IVP ONE ×2 (02:00→19:33)
[2016-10-05] MEDS ORDERED: SALINE FLUSH 10 ML DISP.SYRIN IVF ONE (03:25)
[2016-10-05] MEDS: ONDANSETRON HCL/PF 4 MG/ 2ML VIAL IVP PRN (03:40)
[2016-10-05] MEDS ORDERED: ONDANSETRON HCL/PF 4 MG/ 2ML VIAL IM ONE (04:00)
[2016-10-05] MEDS: LEVOTHYROXINE SODIUM 25 MCG TABLET PO SCH (05:55)
[2016-10-05] MEDS: LEVOTHYROXINE SODIUM 100 MCG TABLET PO SCH (05:55)
[2016-10-05 07:52] LABS: ABG PH 7.42 (7.35-7.45)
[2016-10-05 07:53] LABS: ABG BASE EXCESS 8.8 (-2 - +2)
[2016-10-05 09:20] VITALS: BP 116/66
[2016-10-05] MEDS ORDERED: DILTIAZEM HCL 180 MG CAP.ER.24H PO ONE (12:47)
--- NOTE | 2016-10-20 16:43 | Discharge Summary ---
Discharge Summary - Discharge Sumary History of Present Illness: 86yo white male with a history of COPD. This AM was found to be running a fever and started to have some increasing SOB/dyspnea. Started a productive cough of some green phlegm, denied any hemphysis. Nursing staff note some increasing rhonchi and wheezing and required increasing amounts of supplementle oxygen to maintain SaO2 > 90%. Patient was brought to the Ed for evaluation. X-ray did not show any pneumonia but was felt to have an early phuemonia or bronchitis with exacerbation of COPD. Patient admitted for further evaluation and treatment. Condition at Discharge: Stable Home Medications: Ambulatory Orders Medication Instructions Recorded Albuterol Sulfate 1 inh INH TID PRN 10/01/16 Carvedilol [Coreg] 3.125 mg PO BID 10/01/16 Cholecalciferol [Vitamin D-3] 3,000 units PO DAILY 10/01/16 Furosemide 20 mg PO BID 10/01/16 Ipratropium/Albuterol Sulfate 3 ml INH BID 10/01/16 [Duoneb] Levothyroxine Sodium [Synthroid] 125 mcg PO DAILY 10/01/16 Lisinopril 2.5 mg PO DAILY 10/01/16 Pregabalin [Lyrica] 75 mg PO BID 10/01/16 Ropinirole HCl [Requip] 0.5 mg PO TID 10/01/16 Tiotropium [place] [Spiriva] 2 inh IH QD 10/01/16 Tramadol HCl [Ultram] 50 mg PO TID PRN 10/01/16 Apixaban [Eliquis] 5 mg PO BID #0 tablet 10/05/16 Azithromycin [Zithromax] 250 mg PO DAILY #1 tablet 10/05/16 Cefuroxime Axetil [Ceftin] 500 mg PO BID #14 tablet 10/05/16 Digoxin [Digitek] 125 mcg PO D #30 tablet 10/05/16 Prednisone 10 mg PO DIRECTED #11 tablet 10/05/16 Consultations this Visit: None Procedures this Visit: None Allergies/Adverse Reactions: Allergies Allergy/AdvReac Type Severity Reaction Status Date / Time aspirin Allergy Verified 10/01/16 12:29 Discharge Summary: Patient was felt to be having an exacerbation of his COPD. Patient was started on high flow nebulization treatments with during nap, IV Solu-Medrol, and supplemental oxygen. Patient is also started on azithromycin and ceftriaxone for possible bronchitis versus early pneumonia. Patient symptoms did improve over time. Patient became less short of breath at his breathing return back to his baseline. Supplemental oxygen was able to be decrease back to his baseline. Patient did have a normal sinus rhythm on admission. Patient did go into atrial fibrillation during his hospitalization with a rapid ventricular response in the mid 100 range. Patient was started on carded him IV and then transition to PO Cardizem. It was felt that possibly part of the rapid ventricular response was due to his illness. Patient was started on attic regulation therapy with abixiban.Patient did have some mildly elevated blood sugar levels. A1c withdrawn and was 6.2. Patient was mildly hyponatremia on admission. This did normalize during his hospitalization. - Final Diagnosis (1) COPD exacerbation Problems: improved. (2) Atrial fibrillation with rapid ventricular response Problems: improved with diltizem but wass till slightly elevated, started on abixiban. (3) CAD (coronary artery disease) Problems: stable (4) Generalized OA Problems: stable (5) Dementia Problems: stable (6) Low blood pressure, not hypotension Problems: stable, related to addition of diltiazem for A fib. (7) Diabetes type 2, controlled Problems: Will monitor, patient will be treated with diet at this time.
== END 2016-10-05 09:05 | disposition home or self-care (01) | DRG 303 ==
LOC: ED 12:04 → SOUTH 13:56
PROVIDERS: ADMIT Family Medicine; ATTEND Family Medicine
DX: I25.10 Atherosclerotic heart disease of native coronary artery without angina pectoris (principal); J44.9 Chronic obstructive pulmonary disease, unspecified; G62.9 Polyneuropathy, unspecified; E03.9 Hypothyroidism, unspecified; M15.9 Polyosteoarthritis, unspecified
CPT/HCPCS: 36415; 36600; 71010; 71020; 71260; 80048; 80053; 82803; 83036; 84443; 84484; 85025; 85379; 87040; 93005; J0456; J0696; J1030; J1160; J1650; J2405; J2930; J3490; J7030; J7050; J7626; 99223; 99233; 99238; 99284; J2920; S1016

== ENCOUNTER 2016-10-14 13:08 | Outpatient (CLI) | payer MEDICARE | END 2016-10-14 13:10 | LOC: RAD 13:08 | PROVIDERS: ATTEND Family Medicine | DX: R13.13 Dysphagia, pharyngeal phase (principal) | CPT/HCPCS: 74230 ==

== ENCOUNTER 2016-11-16 12:10 | Outpatient (CLI) | payer MEDICARE, OTHER ==
--- NOTE | 2016-11-16 15:25 | Diagnostic Imaging Report ---
[facility] [address] [address] [facility] [address] [address] Report Submission Date: Nov 16, 2016 1:23:01 PM CDT Patient Study Name: ALLEN BELLE Date: Nov 16, 2016 12:12:16 PM CDT Modality Type: CR Gender: M Description: CHEST : 32 Institution: [facility] Physician: THADDEUS Chest PA and lateral views Clinical history: Dyspnea with elevation d-dimer . Normal heart shadow with atherosclerotic thoracic aorta . COPD and pulmonary emphysema with nodular chronic infiltrate in the left upper lobe and the lung bases . no acute infiltrates or pleural effusion. Prominent pulmonary artery suggesting possible pulmonary hypertension . Impression: Atherosclerotic thoracic aorta COPD with chronic nodular infiltrates without acute infiltrates Questionable pulmonary hypertension Electronically signed on Nov 16, 2016 1:23:01 PM CDT by: Cipriano ARMAS
== END 2016-11-16 12:11 ==
LOC: RAD 12:10 → EDSTATUS 12:25
PROVIDERS: ATTEND Family Medicine
DX: R05 Cough (principal)
CPT/HCPCS: 71020

== ENCOUNTER 2017-06-20 17:52 | Emergency (ER) | payer MEDICARE, OTHER ==
--- NOTE | 2017-06-20 18:25 | ED Physician Documentation ---
General Adult - HISTORIAN Historian: patient - HPI Stated Complaint: fall left wrist,hip,shoulder and knee pain Chief Complaint: General Adult Additional Information: pt c/o sob cough inc confusion onset eam later fell w/ pain stiffness lt wrist hip knee shoulder. he was std on azithromycin this am Onset: other (early this am) Timing: still present, worse Severity: moderate Further Comments: yes (usually quite alert) - ROS CONST: other (inc confusion) EYES/ENT: none CVS/RESP: cough GI/: denies: vomiting, nausea, diarrhea MS/SKIN/LYMPH: leg pain NEURO/PSYCH: difficulty walking, difficulty with speech (sl more confusion). denies: headache, dizziness - PAST HX Past History: COPD, A-Fib, CHF ( neuropathy dm23 ca lung poss pneumonia) Other History: diabetes Type 2 Surgeries/Procedures: other (appy) Allergies/Adverse Reactions: Allergies Allergy/AdvReac Type Severity Reaction Status Date / Time aspirin Allergy Verified 06/20/17 18:08 Home Medications: Ambulatory Orders Medication Instructions Recorded Albuterol Sulfate 1 inh INH TID PRN 10/01/16 Cholecalciferol [Vitamin D-3] 3,000 units PO DAILY 10/01/16 Furosemide 20 mg PO BID 10/01/16 Ipratropium/Albuterol Sulfate 3 ml INH BID 10/01/16 [Duoneb] Levothyroxine Sodium [Synthroid] 150 mcg PO DAILY 10/01/16 Lisinopril 2.5 mg PO DAILY 10/01/16 Pregabalin [Lyrica] 75 mg PO BID 10/01/16 Ropinirole HCl [Requip] 0.5 mg PO TID 10/01/16 Tiotropium [place] [Spiriva] 2 inh IH QD 10/01/16 Tramadol HCl [Ultram] 50 mg PO TID PRN 10/01/16 Apixaban [Eliquis] 5 mg PO BID #0 tablet 10/05/16 Azithromycin [Zithromax] 250 mg PO DAILY #1 tablet 10/05/16 Digoxin [Digitek] 125 mcg PO D #30 tablet 10/05/16 Citalopram Hydrobromide [Celexa] 10 mg PO DAILY 06/20/17 - SOCIAL HX Smoking History: non-smoker Alcohol Use: none Drug Use: none - FAMILY HX Family History: No - VITAL SIGNS Vital Signs: Vital Signs Temp Pulse Resp BP Pulse Ox 98.1 F 121 H 24 132/96 90 L 06/20/17 17:53 06/20/17 17:53 06/20/17 17:53 06/20/17 17:53 06/20/17 17:53 - REVIEWED ASSESSMENTS Nursing Assessment Reviewed: Yes Vitals Reviewed: Yes ED Results Lab/Radiology - Radiology Radiology Impressions: rt lower lobe infiltration chest --- no fx seen re ointsw - Orders Orders: ED Orders Category Date Time Status CHEST 2VIEW [RAD] Stat Exams 06/20/17 Ordered KNEE 1 OR 2 VIEWS [RAD] Stat Exams 06/20/17 Ordered LT HIP 2VIEW COMPLETE [RAD] Stat Exams 06/20/17 Ordered WRIST 3 VIEWS OR MORE [RAD] Stat Exams 06/20/17 Ordered BLOOD CULTURE Stat Lab 06/20/17 Ordered CBC/PLATELET/DIFF Routine Lab 06/20/17 Ordered CMP Routine Lab 06/20/17 Ordered URINALYSIS Routine Lab 06/20/17 Ordered General Adult Physical Exam - PHYSICAL EXAM GENERAL APPEARANCE: moderate distress NECK: normal inspection, supple, stiff neck. No: lymphadenopathy RESPIRATORY: no resp distress, rales (slight lt base). No: breath sounds normal CVS: No: reg rate & rhythm, heart sounds normal (decreased) ABDOMEN: soft, tenderness (slight genl no guarding) EXTREMITIES: no edema (bilateral lower pitting - mild). No: non-tender, normal range of motion NEURO: oriented X3, other (pain movement lt upper and lower extremities swelling lt wrist) Discharge Clincal Impression: rt lower lobe infiltrate-pneumonia, fall w/ trauma-no fracture seen Referrals: Cipriano Gotti MD [Primary Care Provider] - 2 Days Comments: ret to [place] cont azithromycin Condition: Fair Disposition: 01 HOME, SELF-CARE Decision to Admit: NO Decision Time: 20:45
[2017-06-20 19:00] LABS: BASOPHILS % 0.4 (0.0-1.5); EOSINOPHILS % 4.1 % (0.0-6.8); MEAN CORPUSCULAR HEMOGLOBIN 29.4 pg (28.0-34.0); MEAN CORPUSCULAR VOLUME 94.9 fl (80.0-100.0); MONOCYTES % 2.7 % (0.0-11.0); NEUTROPHILS # 6.6 # k/uL (1.4-7.7)
[2017-06-21 00:59] VITALS: BP 130/104
--- NOTE | 2017-06-21 06:01 | Diagnostic Imaging Report ---
JOSTIN BLAIR [facility] [address] [facility] [address] [address] Report Submission Date: June 20, 2017 8:04:40 PM CDT Patient Study Name: ALLEN BELLE Date: June 20, 2017 7:08:21 PM CDT Modality Type: DX Gender: M Description: LOWER EXTREMITY : 32 Institution: [facility] Physician: JOSITN BLAIR Left knee 3 views Date of Exam: June 20, 2017. History: LT KNEE PAIN AFTER FALL (Hx) / ITS.REASON fall (DICOM Hx) / ITS.REASON fall (Pt comments) Findings: Degenerative osteoarthritic changes and joint space narrowing is present. There is diffuse soft tissue edema. No acute fracture or dislocation is identified. The patella is in appropriate relationship with the distal femur. Impression: No acute osseous abnormality. Diffuse soft tissue edema. Electronically signed on June 20, 2017 8:04:40 PM CDT by: Chen ARMAS
--- NOTE | 2017-06-21 06:01 | Diagnostic Imaging Report ---
JOSTIN BLAIR [facility] [address] [facility] [address] Report Submission Date: June 20, 2017 8:06:21 PM CDT Patient Study Name: ALLEN BELLE Date: June 20, 2017 7:15:10 PM CDT Modality Type: DX Gender: M Description: SHOULDER : 32 Institution: [facility] Physician: JOSTIN BLAIR Left shoulder 3 views Date of Exam: June 20, 2017. History: PAIN AFTER FALL, DECREASED MOVEMENT, IMAGES TAKE IN SUPINE POSITION ( Hx) / ITS.REASON fall pain dec movement (DICOM Hx) / ITS.REASON fall pain dec movement (Pt comments) Findings: Degenerative osteoarthritic changes are present. There is no evidence of acute fracture or dislocation. The visualized left ribs are intact. Impression: No acute osseous abnormality. Electronically signed on June 20, 2017 8:06:21 PM CDT by: Chen ARMAS
--- NOTE | 2017-06-21 06:02 | Diagnostic Imaging Report ---
JOSTIN BLAIR [facility] [address] [facility] [address] [address] Report Submission Date: June 20, 2017 8:02:23 PM CDT Patient Study Name: ALLEN BELLE Date: June 20, 2017 6:32:48 PM CDT Modality Type: DX Gender: M Description: CHEST : 32 Institution: [facility] Physician: JOSTIN BLAIR Chest AP portable Date of Exam: June 20, 2017. History: CONFUSION, SOA (Hx) / ITS.REASON confusion (DICOM Hx) / ITS.REASON confusion (Pt comments) Findings: No comparison studies are available. The cardiac and mediastinal silhouettes are normal. There is a right lower lobe infiltrate. The trachea is midline and aortic arch contour is normal. The pulmonary vascularity is within normal limits. Bilateral lower lobe reticular densities are also present. Impression: Right lower lobe infiltrate. Electronically signed on June 20, 2017 8:02:23 PM CDT by: Chen ARMAS
--- NOTE | 2017-06-21 06:02 | Diagnostic Imaging Report ---
JOSTIN BLAIR [facility] [address] [facility] [address] [address] Report Submission Date: June 20, 2017 6:51:15 PM CDT Patient Study Name: ALLEN BELLE Date: June 20, 2017 6:19:35 PM CDT Modality Type: DX Gender: M Description: UPPER EXTREMITY : 32 Institution: [facility] Physician: JOSTIN BLAIR Left wrist 3 views Date of Exam: History: LT WRIST PAIN AFTER FALL (Hx) / ITS.REASON fall Findings: Degenerative osteoarthritic changes are present. There is no evidence of acute fracture or dislocation. The radiocarpal alignment is maintained. Soft tissue swelling is noted. A radiopaque foreign body is present in the dorsal skin overlying the wrist. Impression: Degenerative osteoarthritic changes without evidence of acute fracture or dislocation. A radiopaque foreign body in the soft tissues of the dorsal skin overlying the wrist. Electronically signed on June 20, 2017 6:51:15 PM CDT by: Chen ARMAS
--- NOTE | 2017-06-21 06:02 | Diagnostic Imaging Report ---
JOSTIN BLAIR [facility] [address] [facility] [address] [address] Report Submission Date: June 20, 2017 8:03:27 PM CDT Patient Study Name: ALLEN BELLE Date: June 20, 2017 7:05:18 PM CDT Modality Type: DX Gender: M Description: PELVIS : 34 Institution: [facility] Physician: JOSTIN BLAIR Left hip 2 views Date of Exam: June 20, 2017. History: LT HIP PAIN AFTER FALL (Hx) / ITS.REASON fall (DICOM Hx) / ITS.REASON fall (Pt comments) Findings: Degenerative osteoarthritic changes are present. There is no evidence of acute fracture or dislocation. Impression: Degenerative osteoarthritic changes without evidence of acute fracture. Electronically signed on June 20, 2017 8:03:27 PM CDT by: Chen ARMAS
[2017-06-21 16:24] LABS: TOTAL PROTEIN 7.1 g/dL (6.0-8.5)
== END 2017-06-20 21:15 | disposition home or self-care (01) ==
LOC: ED 17:52
DX: J18.8 Other pneumonia, unspecified organism (principal); E11.9 Type 2 diabetes mellitus without complications; I50.9 Heart failure, unspecified; W19.XXXA Unspecified fall, initial encounter
CPT/HCPCS: 71045; 73030; 73110; 73560; 80053; 85025; 87040; 99284

== ENCOUNTER 2017-07-27 08:46 | Outpatient (CLI) | payer MEDICARE, OTHER ==
[2017-06-21 00:59] VITALS: BP 130/104
--- NOTE | 2017-07-28 06:50 | Diagnostic Imaging Report ---
TIA WASHINGTON [facility] [address] [facility] [address] Report Submission Date: Jul 27, 2017 4:31:20 PM CDT Patient Study Name: ALLEN BELLE Date: Jul 27, 2017 9:12:41 AM CDT Modality Type: US Gender: M Description: : 32 Institution: [facility] Physician: TIA WASHINGTON Examination: Ultrasound left arterial History: LT NON HEALING FOOT ULCER (Hx) Comparison exams: None available Findings: Sonographic evaluation of the left lower extremity arterial system from the groin to the distal extremities bilaterally demonstrates normal waveforms. Small amount of nonocclusive plaquing. Impression: Small amount of nonocclusive plaque. No reduction to hemodynamic flow. Electronically signed on Jul 27, 2017 4:31:20 PM CDT by: Renzo ARMAS
--- NOTE | 2017-07-28 06:51 | Diagnostic Imaging Report ---
TIA WASHINGTON [facility] [address] [facility].[address] [address] Report Submission Date: Jul 27, 2017 8:02:38 PM CDT Patient Study Name: ALLEN BELLE Date: Jul 27, 2017 9:03:30 AM CDT Modality Type: DX Gender: M Description: FOOT : 32 Institution: [facility] Physician: TIA W[place] Left foot 3 views History: Nonhealing dorsal foot wound Findings: Dorsal left foot soft tissue swelling and diffuse osteopenia are observed without fracture, dislocation, or osteolytic lesion. Arterial calcifications are present. Impression: Dorsal soft tissue swelling without focal osseous abnormality. Electronically signed on Jul 27, 2017 8:02:38 PM CDT by: Diogo ARMAS
== END 2017-07-27 08:47 ==
LOC: RAD 08:46
PROVIDERS: ATTEND Nurse Practitioner Family
DX: S91.302A Unspecified open wound, left foot, initial encounter (principal); X58.XXXA Exposure to other specified factors, initial encounter; Y92.9 Unspecified place or not applicable; Y93.9 Activity, unspecified; Y99.9 Unspecified external cause status; L97.909 Non-pressure chronic ulcer of unspecified part of unspecified lower leg with unspecified severity
CPT/HCPCS: 36415; 73630; 82040; 84155; 85651; 86140; 93926

== ENCOUNTER 2017-08-14 18:56 | Observation (INO) | payer MEDICARE, OTHER ==
--- NOTE | 2017-08-14 18:59 | ED Physician Documentation ---
General Adult - HISTORIAN Historian: patient - HPI Stated Complaint: hypotension lethargic Chief Complaint: General Adult Onset: hours (4) Timing: still present Severity: mild Further Comments: yes ([place] approx 4 hours ago. When he was found he was reportedly lethargic and b/p was low. He was brought to ER via ambulance where they stated his blood pressure had started to recover with small amount of fluids> He has no complaints on admission. He does have a wrap on left foot and the fpc had told the pastry sous chef he had a treated sore on the foot) - ROS CONST: no problems EYES/ENT: none CVS/RESP: none GI/: none MS/SKIN/LYMPH: none - PAST HX Past History: COPD, CHF, hypertension Immunizations: UTD Allergies/Adverse Reactions: Allergies Allergy/AdvReac Type Severity Reaction Status Date / Time aspirin Allergy Verified 06/20/17 18:08 Home Medications: Ambulatory Orders Medication Instructions Recorded Albuterol Sulfate 1 inh INH TID PRN 10/01/16 Cholecalciferol [Vitamin D-3] 3,000 units PO DAILY 10/01/16 Furosemide 20 mg PO BID 10/01/16 Ipratropium/Albuterol Sulfate 3 ml INH BID 10/01/16 [Duoneb] Levothyroxine Sodium [Synthroid] 150 mcg PO DAILY 10/01/16 Lisinopril 2.5 mg PO DAILY 10/01/16 Pregabalin [Lyrica] 75 mg PO BID 10/01/16 Ropinirole HCl [Requip] 0.5 mg PO TID 10/01/16 Tiotropium [place] [Spiriva] 2 inh IH QD 10/01/16 Tramadol HCl [Ultram] 50 mg PO TID PRN 10/01/16 Apixaban [Eliquis] 5 mg PO BID #0 tablet 10/05/16 Azithromycin [Zithromax] 250 mg PO DAILY #1 tablet 10/05/16 Digoxin [Digitek] 125 mcg PO D #30 tablet 10/05/16 Citalopram Hydrobromide [Celexa] 10 mg PO DAILY 06/20/17 - SOCIAL HX Smoking History: non-smoker Alcohol Use: none Drug Use: none - FAMILY HX Family History: No - VITAL SIGNS Vital Signs: Vital Signs Temp Pulse Resp BP Pulse Ox 130/104 06/21/17 00:54 - REVIEWED ASSESSMENTS Nursing Assessment Reviewed: Yes Vitals Reviewed: Yes Progress - Progress Progress: 2014: Pt in room with family. They feel he is a "little more confused than usual " DG 2049: Discussed case with Dr Landeros. Will admit observation. DG ED Results Lab/Radiology - Radiology Radiology Impressions: Portable chest CLINICAL HISTORY: Shortness of breath. FINDINGS: Examination of the chest single portable AP view demonstrates lungs to be hypoventilated but clear. Cardiac silhouette is prominent and the aorta is atherosclerotic. Bony thorax appears intact. IMPRESSION: Hypoventilation. Aortic atherosclerosis and left ventricular prominence. Electronically signed on Aug 14, 2017 7:25:40 PM CDT by: Sahil Lucero General Adult Physical Exam - PHYSICAL EXAM GENERAL APPEARANCE: no distress EENT: eye inspection normal, ENT inspection normal, pharynx normal, no signs of dehydration RESPIRATORY: no resp distress, chest non-tender, wheezes (exp RUL ) CVS: heart sounds normal, irregularly irregular rhy, tachycardia ABDOMEN: soft, normal bowel sounds SKIN: warm/dry, normal color, other (dry dressing on left foot ) EXTREMITIES: non-tender, edema (1+ pitting ) NEURO: mood/affect nml, disoriented (he was not aware of his timing of how long he was out or how long he has been at [facility] ) Discharge Clincal Impression: Atrial flutter Qualifiers: Atrial flutter type: unspecified Qualified Code(s): I48.92 - Unspecified atrial flutter Condition: Fair Disposition: ADMITTED INPATIENT Decision to Admit: [id number] Date of Decison to Admit: 08/14/17 Decision Time: 20:50
[2017-08-14] MEDS ORDERED: IPRATROPIUM/ALBUTEROL SULFATE 3 ML AMPUL.NEB NEB ONE (19:00)
[2017-08-14 19:28] LABS: BASOPHILS % 0.2 (0.0-1.5); EOSINOPHILS % 2.4 % (0.0-6.8); MEAN CORPUSCULAR HEMOGLOBIN 29.5 pg (28.0-34.0); MEAN CORPUSCULAR VOLUME 91.6 fl (80.0-100.0); MONOCYTES % 3.9 % (0.0-11.0)
[2017-08-14 19:39] LABS: eGFR (African) > 60; eGFR (Non-African) > 60
[2017-08-14] MEDS ORDERED: ASPIRIN 81 MG CHEW TAB PO ONE (20:11)
--- NOTE | 2017-08-14 20:15 | Diagnostic Imaging Report ---
KAJAL VELÁZQUEZ [facility] [address] [facility] [address] [place], [place]. [address] Report Submission Date: Aug 14, 2017 7:25:40 PM CDT Patient Study Name: ALLEN BELLE Date: Aug 14, 2017 7:05:16 PM CDT Modality Type: DX Gender: M Description: CHEST : 34 Institution: [facility] Physician: KAJAL VELÁZQUEZ Portable chest CLINICAL HISTORY: Shortness of breath. FINDINGS: Examination of the chest single portable AP view demonstrates lungs to be hypoventilated but clear. Cardiac silhouette is prominent and the aorta is atherosclerotic. Bony thorax appears intact. IMPRESSION: Hypoventilation. Aortic atherosclerosis and left ventricular prominence. Electronically signed on Aug 14, 2017 7:25:40 PM CDT by: Sahil ARMAS
[2017-08-14] MEDS ORDERED: 0.9 % SODIUM CHLORIDE 1,000 ML IV ONE (21:06)
[2017-08-14] MEDS ORDERED: IPRATROPIUM/ALBUTEROL SULFATE 3 ML AMPUL.NEB NEB PRN (22:13)
[2017-08-14] MEDS ORDERED: 0.9 % SODIUM CHLORIDE 1,000 ML IV SCH ×2 (22:13→23:30)
[2017-08-14] MEDS ORDERED: DIGOXIN 250MCG/1ML IVP ONE (22:13)
[2017-08-14] MEDS ORDERED: DIGOXIN 250MCG/1ML ONE (22:21)
--- NOTE | 2017-08-14 22:51 | History and Physical Report ---
History of Present Illnes - History of Present Illness Reason for Visit: Hypotension, syncope, tachycardia History of Present Illness: Fidencio is an 87 year old male patient of Dr. Shine from [facility] who presented from the ER with a bout of syncope today at the detention. He had been outside of the building for a brief period (he says about 10 minutes) and after returning, had a brief bout of LOC, and was brought to the ER for evaluation. He was also hypotensive and tachycardic. He has a history of AF but rate has been well controlled. He is anticoagulated with Eliquis. - Past Medical History Cardiac: AFIB, CAD, Pulmonary hypertension, Other (SVT) Pulmonary: COPD MEETING COORDINATOR: Dementia, Other (essential tremor, peripheral neuropathy, s/p subdural hematoma) Gastrointestinal: Constipation Heme/Onc: Anemia NOS Hepatobiliary: denies: Other Psych: denies: Psychosis Musculoskeletal: Osteoarthritis Rheumatologic: denies: Other Infectious Disease: denies: Other ENT: Allergic rhinitis, Other (macular degeneration) Endocrine: Hypothyroidism Dermatology: Other (nonsquamous cell Ca ) - Past Surgical History Past Surgical History: Other (cardiac stenting, cardiac ablation), Other ( facial reconstruction, R shoulder arthroscopy) - Past Social History Smoke: # pack years (30), Quit 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 Alcohol: None Drugs: None, Marijuana Lives: Intermediate Domestic Violence: Negative - Health Maintenance Health Maintenance: Influenza Vaccine, Pneumococcal Vaccine Influenza Vaccine: Current for this Influenza Season Pneumonia Vaccine: Yes Resuscitation Status: Resusciation Status Resuscitation Status Do Not Resuscitate - Unable to Obtain History Unable to Obtain: No Review of Systems - Review of Systems Constitutional: negative: Fever, Chills, Sweats Eyes: negative: pain ENT: negative: Ear Pain, Ear Discharge Respiratory: negative: Cough, Dry Cardiovascular: negative: Chest Pain Gastrointestinal: negative: Nausea, Vomiting Genitourinary: negative: Dysuria Musculoskeletal: negative: Neck Pain, Shoulder Pain Skin: negative: Rash Neurological: Weakness. negative: Confusion - Medications/Allergies Allergies/Adverse Reactions: Allergies Allergy/AdvReac Type Severity Reaction Status Date / Time aspirin Allergy Verified 06/20/17 18:08 Current Inpatient Medications: Current Inpatient Medications Albuterol/Ipratropium (Duoneb) 3 ml NEB Q4 PRN PRN Reason: Wheezing Carvedilol (Coreg) 6.25 mg PO BID JAMES Digoxin (Lanoxin) [address] [facility] Digoxin (Lanoxin) 125 mcg IVP NOW ONE Stop: 08/14/17 22:14 Furosemide (Lasix) [address] [facility] Sodium Chloride (Normal Saline) 1,000 mls @ 100 mls/hr IV Q10H [facility] Miscellaneous (Levothyroxine Sodium [Synthroid]) [address] [facility] Exam - Exam Vital Signs: Vital Signs (72 hours) 08/14/17 21:16 Temperature 97.5 F L Pulse Rate [ 140 H Left Pulse ox] Respiratory 24 Rate Blood Pressure 91/60 [Right Arm] O2 Sat by Pulse 93 Oximetry General: Alert, Oriented to Person, Oriented to Place, Oriented to Time, Cooperative HEENT: Atraumatic, PERRLA, EOMI, Mouth Mucous membr. moist/[place] Neck: No: Stridor Lungs: Clear to auscultation, Prolonged Expiration, Decreased Air Movement Cardiovascular: Irregularly Irregular Murmur: Systolic Murmur Murmur Location: Left Sternal [place] Heart Murmur Grade: II Abdomen: Normal bowel sounds Genitourinary: No: Other Male Genitourinary: No: Other Female Genitourinary: No: Other Integumentary: Normal, [place], Warm Extremities: No clubbing, Other (open wound on top of the left foot. Dressed with Telfa/EULA/Kerlix) Neurological: Generalized Weakness Psych/Mental Status: Mental status NL Assessment/Plan - Assessment/Plan (1) Syncope Status: Acute Current Visit: Yes Assessment: Now back at baseline (2) Diabetes type 2, controlled Status: Acute Current Visit: No Qualifiers: Diabetes mellitus complication status: with circulatory complication Assessment: Continue current medications (3) Low blood pressure, not hypotension Status: Acute Current Visit: No Assessment: NS @ 150 cc/h (4) CAD (coronary artery disease) Status: Chronic Current Visit: No Qualifiers: Coronary Disease-Associated Artery/Lesion type: [place] artery [place] vs. transplanted heart: [place] heart Associated angina: without angina Qualified Code(s): I25.10 - Atherosclerotic heart disease of [place] coronary artery without angina pectoris Assessment: No current evidence of ischemia, and negative troponins Plan: IVF/loaded with another dose of digoxin Hope for d/c back to [place] in the am VTE Assessment - RISK FACTOR SCORE VTE RISK FACTOR SCORES: AGE OVER 60 YEARS, LEG SWELLING, ULCERS, VARICOSE VEINS - RISK VTE MODERATE RISK: SCORE OF 2 (RISK PROXIMAL DVT 2-4%) PROPHYAXIS NEEDED (On Eliquis)
[2017-08-15] MEDS ORDERED: APIXABAN 2.5 MG TABLET PO ONE (02:01)
[2017-08-15] MEDS ORDERED: CARVEDILOL 6.25 MG TABLET PO ONE (02:01)
[2017-08-15] MEDS ORDERED: FUROSEMIDE 20 MG TABLET PO ONE (02:02)
[2017-08-15] MEDS ORDERED: LEVOTHYROXINE SODIUM 100 MCG TABLET ONE (02:03)
[2017-08-15] MEDS ORDERED: LEVOTHYROXINE SODIUM 25 MCG TABLET ONE (02:04)
[2017-08-15] MEDS ORDERED: 0.9 % SODIUM CHLORIDE 1,000 ML IV ONE (04:34)
[2017-08-15 05:48] VITALS: BP 102/51
[2017-08-15 07:23] LABS: BASOPHILS % 0.2 (0.0-1.5); EOSINOPHILS % 3.5 % (0.0-6.8); MEAN CORPUSCULAR HEMOGLOBIN 29.6 pg (28.0-34.0); MEAN CORPUSCULAR VOLUME 91.9 fl (80.0-100.0); MONOCYTES % 5.4 % (0.0-11.0)
[2017-08-15 07:30] LABS: eGFR (African) > 60; eGFR (Non-African) > 60
[2017-08-15 07:37] LABS: APPEARANCE,URINE CLEAR (CLEAR); COLOR,URINE YELLOW (YELLOW); OCCULT BLOOD,URINE NEGATIVE (NEGATIVE); UROBILINOGEN URINE 0.2 Eu (0.2-1.0)
[2017-08-15] MEDS ORDERED: IPRATROPIUM/ALBUTEROL SULFATE 3 ML AMPUL.NEB NEB ONE (08:06)
[2017-08-15] MEDS ORDERED: CARVEDILOL 6.25 MG TABLET PO SCH (09:00)
[2017-08-15] MEDS ORDERED: FUROSEMIDE 20 MG TABLET PO SCH (09:00)
[2017-08-15] MEDS ORDERED: DIGOXIN 125 MCG TABLET PO SCH (09:00)
[2017-08-15] MEDS ORDERED: APIXABAN 2.5 MG TABLET PO SCH (09:00)
[2017-08-15] MEDS ORDERED: LEVOTHYROXINE SODIUM 150 MCG PO SCH (09:00)
[2017-08-15] MEDS ORDERED: DIGOXIN 125 MCG TABLET PO ONE (09:20)
--- NOTE | 2017-08-16 15:09 | Discharge Summary ---
DATE OF ADMISSION: August 14, 2017 DATE OF DISCHARGE: August 15, 2017 DIAGNOSES ON THIS HOSPITALIZATION: 1. Hypotension. 2. Tachycardia. 3. Syncope. SUMMARIZATION OF ADMISSION HISTORY AND PHYSICAL: This is an 87-year-old patient of Dr. Gotti'mary grace from [facility] who presented to the emergency room with a bout of syncope at the halfway. He had been outside the building for a brief period of time, although they could not ascertain exactly how long that was. He apparently had a brief period of loss of consciousness according to the ER. He was noted in the emergency room to be hypotensive and tachycardic. It was felt like he needed to be admitted at least overnight for some IV fluids. It is of note that he is anticoagulated with Eliquis. HOSPITAL COURSE: He was admitted and started on IV fluids. I did bolus him with some Digoxin. I did not want to increase his beta-sarahi or use diltiazem because of his hypotension. He was feeling very well by the next morning. When he is at rest , his heart rate is at about the 110's. When he is up and walking, it does get up to about 120 to 130s. CONDITION ON DISCHARGE: He will be discharged back to [facility] in improved condition. MEDICATIONS ON DISCHARGE: Continue all of his current medications. DISCHARGE INSTRUCTIONS: Follow up with Dr. Gotti next week. PAWEL
== END 2017-08-15 13:04 | disposition home or self-care (01) ==
LOC: ED 18:56 → SOUTH 21:01
PROVIDERS: ADMIT Family Medicine; ATTEND Family Medicine
DX: I48.92 Unspecified atrial flutter (principal); I95.89 Other hypotension; R00.0 Tachycardia, unspecified
CPT/HCPCS: 71045; 80053; 80162; 81002; 83880; 84484; 85025; 85379; 85610; 93005; G0378; J1160; J7030; 96374; 99217; 99219

== ENCOUNTER 2017-09-15 21:40 | Emergency (ER) | payer MEDICARE, OTHER ==
[2017-09-15] MEDS ORDERED: DILTIAZEM HCL 25 MG/ 5ML VIAL IVP ONE (21:50)
--- NOTE | 2017-09-15 21:52 | ED Physician Documentation ---
General Adult - HISTORIAN Historian: patient, paramedics - [facility] Stated Complaint: chest pain Chief Complaint: General Adult Onset: hours Timing: still present Severity: moderate Further Comments: yes (Pt is an 87 yo male with c/o chest pain and rapid heart rate. Pt was admitted here last month on 08/14/17 after and episode of syncope. Pt has hx AFIB, CAD, Pulmonary HTN, SVT, and COPD. He has had cardiac stents and cardiac ablation. Pt also has hx non-squamous cell lung cancer.) - ROS CONST: weakness EYES/ENT: none CVS/RESP: chest pain, shortness of breath GI/: none. denies: nausea MS/SKIN/LYMPH: none NEURO/PSYCH: dizziness - PAST HX Past History: other (Afib, CAD, Pulmonary HTN, SVT, COPD, Dementia, essential tremor, anemia, OA, macular degeneration, Hypothyroidism, nonsquamous cell cancer) Allergies/Adverse Reactions: Allergies Allergy/AdvReac Type Severity Reaction Status Date / Time aspirin Allergy Verified 09/15/17 22:05 Home Medications: Ambulatory Orders Medication Instructions Recorded Albuterol Sulfate 1 inh INH TID PRN 10/01/16 Cholecalciferol [Vitamin D-3] 3,000 units PO DAILY 10/01/16 Furosemide 20 mg PO BID 10/01/16 Ipratropium/Albuterol Sulfate 3 ml INH BID 10/01/16 [Duoneb] Levothyroxine Sodium [Synthroid] 150 mcg PO DAILY 10/01/16 Lisinopril 2.5 mg PO DAILY 10/01/16 Pregabalin [Lyrica] 75 mg PO BID 10/01/16 Ropinirole HCl [Requip] 0.5 mg PO TID 10/01/16 Apixaban [Eliquis] 5 mg PO BID #0 tablet 10/05/16 Digoxin [Digitek] 125 mcg PO D #30 tablet 10/05/16 Carvedilol [Coreg] 3.125 mg PO BID 09/15/17 - SOCIAL HX Smoking History: quit greater than 1 year Alcohol Use: none Drug Use: none - FAMILY HX Family History: No (unk) - VITAL SIGNS Vital Signs: Vital Signs Temp Pulse Resp BP Pulse Ox 102/51 08/15/17 09:00 - REVIEWED ASSESSMENTS Nursing Assessment Reviewed: Yes Vitals Reviewed: Yes Progress - Progress Progress: Cardizem 30 mg IV HR 142 --> 96 BP 86/42 NS 1 L IVF then NS @ 125 ml/hr BP 94/[address] Newsome unable to accept pt because of lack of beds in step-down/ICU, approved transfer to [facility] transfer [facility]. Dr. Dillard cardiology (and Dr. Leone) - EKG/XRAY/CT EKG: rhythm (Tachycardia JI=988; ? SVT vs atrial flutter; normal axis. EKG #1; 9:40 pm) XRAY: chest (no acute process) - Additional EKG/XRAY/Consults EKG #2: rhythm (atrial flutter; HR=84; normal axis.) ED Results Lab/Radiology - Orders Orders: ED Orders Category Date Time Status Continuous EKG monitoring Q30M Care 09/15/17 21:47 Ordered Continuous Pulse Oximetry Q30M Care 09/15/17 21:[address] IV Lock 1T Care 09/15/17 21:47 Ordered CHEST 1VIEW [RAD] Stat Exams 09/15/17 Ordered BNP [NT-proBNP] Stat Lab 09/15/17 Ordered CBC/PLATELET/DIFF Routine Lab 09/15/17 21:47 Ordered CKMB Stat Lab 09/15/17 Ordered CMP Routine Lab 09/15/17 21:47 Ordered CREATINE KINASE Routine Lab 09/15/17 21:47 Ordered TROPONIN I (cTnI) Stat Lab 09/15/17 21:47 Ordered Oxygen Daily Oxygen 09/15/17 22:00 Ordered EKG WITH COMPARISON Stat Ther 09/15/17 21:47 Ordered General Adult Physical Exam - PHYSICAL EXAM GENERAL APPEARANCE: mild distress EENT: pharynx normal NECK: normal inspection, supple RESPIRATORY: no resp distress, other (prolonged expiration, exquisite tenderness to palpation L mid chest wall.) CVS: other (initially in tachycardia with regular rate (=142)) ABDOMEN: soft, no organomegaly, normal bowel sounds BACK: normal inspection, no CVA tenderness SKIN: warm/dry, other (ulceration dorsum of L foot) EXTREMITIES: edema (1+) NEURO: motor nml, sensation nml, other (baseline ms, pt appeared comfortable, pleasnt and conversational during ER course) Discharge Clincal Impression: SVT, Afib/Aflutter, Hypotension Referrals: Cipriano Gotti MD [Primary Care Provider] - Condition: Stable Disposition: 02 [facility]FER [facility] Decision to Admit: NO Decision Time: 00:07
[2017-09-15] MEDS ORDERED: 0.9 % SODIUM CHLORIDE 1,000 ML IV ONE ×2 (22:16→22:20)
[2017-09-15 22:44] LABS: BASOPHILS % 0.3 (0.0-1.5); MEAN CORPUSCULAR HEMOGLOBIN 29.9 pg (28.0-34.0); MEAN CORPUSCULAR VOLUME 91.6 fl (80.0-100.0); MONOCYTES % 4.6 % (0.0-11.0); NEUTROPHILS # 7.7 # k/uL (1.4-7.7)
--- NOTE | 2017-09-15 22:54 | Diagnostic Imaging Report ---
RILEY SIMEON [facility] [address] [facility] [address] [place] [address]. [id number] Report Submission Date: Sep 15, 2017 10:19:40 PM CDT Patient Study Name: ALLEN BELLE Date: Sep 15, 2017 9:53:18 PM CDT Modality Type: DX Gender: M Description: CHEST : 32 Institution: [facility] Physician: RILEY SIMEON Chest AP portable Date of Exam: September 15, 2017. History: NON-PRODUCTIVE COUGH AND ELEVATED HEARTRATE TONIGHT (Hx) / ITS.REASON chest pain (DICOM Hx) / ITS.REASON Shortness of air hx copd (Pt comments) Findings: Comparison is made with August 14, 2017. The cardiac and mediastinal silhouettes are stable. Chronic scarring is again evident bilaterally. No acute infiltrate or effusion is identified. The pulmonary vascularity is stable. There is an azygos fissure. The trachea is midline. A nodular density in the left upper lobe appears stable. Impression: No acute cardiopulmonary abnormality. Electronically signed on Sep 15, 2017 10:19:40 PM CDT by: Chen ARMAS
[2017-09-15] MEDS ORDERED: 0.9 % SODIUM CHLORIDE 1,000 ML IV SCH (23:45)
[2017-09-16 00:44] VITALS: BP 84/60
== END 2017-09-16 00:35 | disposition short-term general hospital (02) ==
LOC: ED 21:40
DX: I48.91 Unspecified atrial fibrillation (principal); I95.9 Hypotension, unspecified; I47.1 Supraventricular tachycardia
CPT/HCPCS: 71045; 80053; 82550; 82553; 82565; 83880; 84484; 85025; 93005; J3490; J7030; 96365; 96366; 96375; 99285; S1016

== ENCOUNTER 2018-05-21 15:58 | Emergency (ER) | payer MEDICARE, OTHER ==
--- NOTE | 2018-05-21 16:22 | ED Physician Documentation ---
General Adult - HISTORIAN Historian: patient, paramedics - HPI Stated Complaint: hypotensio, change in mental status Chief Complaint: General Adult Onset: hours Timing: better Severity: moderate Further Comments: yes (Pt is an 88 yo prison pt who appeared to have a change in mental status at prison. Pt has hx COPD and is on home O2. Pt was noted to have some low bp readings.) - ROS CONST: other (Pt is a poor historian) - PAST HX Past History: other (hypothyroidism, HTN, neuropathy, CAD, COPD, CHF, hx Afib, hx lung ca) Allergies/Adverse Reactions: Allergies Allergy/AdvReac Type Severity Reaction Status Date / Time aspirin Allergy Verified 09/15/17 22:05 Home Medications: Ambulatory Orders Medication Instructions Recorded Albuterol Sulfate 1 inh INH TID PRN 10/01/16 Cholecalciferol [Vitamin D-3] 3,000 units PO DAILY 10/01/16 Furosemide 20 mg PO BID 10/01/16 Ipratropium/Albuterol Sulfate 3 ml INH BID 10/01/16 [Duoneb] Pregabalin [Lyrica] 75 mg PO BID 10/01/16 Ropinirole HCl [Requip] 0.5 mg PO TID 10/01/16 Apixaban [Eliquis] 5 mg PO BID #0 tablet 10/05/16 Carvedilol [Coreg] 3.125 mg PO BID 09/15/17 Atorvastatin Calcium 1 tab PO DAILY 05/21/18 Fluticasone/Vilanterol [Breo 1 puff INH DAILY 05/21/18 Ellipta 200-25 Mcg INH] Levothyroxine Sodium [Synthroid] 1 tab PO DAILY 05/21/18 - SOCIAL HX Smoking History: non-smoker - FAMILY HX Family History: No - VITAL SIGNS Vital Signs: Vital Signs Temp Pulse Resp BP Pulse Ox 84/60 09/16/17 00:35 - REVIEWED ASSESSMENTS Nursing Assessment Reviewed: Yes Vitals Reviewed: Yes Progress - Progress Progress: CXR: Findings: Examination of the chest in single AP view with no prior films for comparison demonstrates discoid changes in the left base. Cardiovascular and mediastinal silhouettes are within normal limits. Monitor leads superimpose the chest. Impression: 1. 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 NS 1 L IVF improved - EKG/XRAY/CT EKG: NSR (HR=77; low voltage; non-specific ST/T changes; normal axis.) General Adult Physical Exam - PHYSICAL EXAM GENERAL APPEARANCE: mild distress EENT: pharynx normal NECK: normal inspection, supple RESPIRATORY: rales (mild, L base) CVS: reg rate & rhythm, heart sounds normal ABDOMEN: soft, no organomegaly, normal bowel sounds BACK: normal inspection, no CVA tenderness SKIN: other (possible early inflammatory, decubitus changes, sacrum and L great toe. No ulceration at this time.) NEURO: motor nml, sensation nml, other (baseline motor/mental status) Discharge Clincal Impression: dehydration, early decub changes-sacrum & L great toe, chronic COPD Referrals: Cipriano Gotti MD [Primary Care Provider] - Condition: Stable Disposition: 04 [facility] Decision to Admit: NO Decision Time: 18:24
[2018-05-21 16:31] LABS: BASOPHILS % 0.5 % (0.0-1.5); EOSINOPHILS % 3.6 % (0.0-6.8); MEAN CORPUSCULAR HEMOGLOBIN 29.1 pg (28.0-34.0); NEUTROPHILS # 4.4 # k/uL (1.4-7.7)
[2018-05-21 16:35] LABS: eGFR (Non-African) > 60
[2018-05-21] MEDS ORDERED: 0.9 % SODIUM CHLORIDE 1,000 ML IV ONE (17:28)
[2018-05-21 17:37] LABS: APPEARANCE,URINE CLEAR (CLEAR); COLOR,URINE YELLOW (YELLOW); OCCULT BLOOD,URINE NEGATIVE (NEGATIVE)
[2018-05-21 17:38] LABS: UROBILINOGEN URINE 0.2 Eu (0.2-1.0)
--- NOTE | 2018-05-21 18:01 | Diagnostic Imaging Report ---
RILEY SIMEON [facility] [address] [facility] [address] [place], [place]. [address] Report Submission Date: May 21, 2018 5:55:49 PM CDT Patient Study Name: ALLEN BELLE Date: May 21, 2018 5:05:41 PM CDT Modality Type: DX Gender: M Description: : 34 Institution: [facility] Physician: RILEY SIMEON Portable chest Clinical history: Cough for 3 days. Wheezing. Findings: Examination of the chest in single AP view with no prior films for comparison demonstrates discoid changes in the left base. Cardiovascular and mediastinal silhouettes are within normal limits. Monitor leads superimpose the chest. Impression: 1. 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 Electronically signed on May 21, 2018 5:55:49 PM CDT by: Sahil ARMAS
[2018-05-21 19:58] VITALS: BP 101/80
== END 2018-05-21 19:32 ==
LOC: ED 16:03
DX: J44.9 Chronic obstructive pulmonary disease, unspecified (principal); E86.0 Dehydration; L89.159 Pressure ulcer of sacral region, unspecified stage; L89.899 Pressure ulcer of other site, unspecified stage
CPT/HCPCS: 36415; 71045; 80053; 81002; 82550; 82553; 83880; 84484; 85025; 93005; 96360; 99283; 99284; J7030

== ENCOUNTER 2018-06-23 14:58 | Outpatient (CLI) | payer MEDICARE, OTHER | END 2018-06-23 15:00 | LOC: LAB 14:58 | PROVIDERS: ATTEND Family Medicine | DX: M25.529 Pain in unspecified elbow (principal); R53.83 Other fatigue | CPT/HCPCS: 36415; 84550 ==

== ENCOUNTER 2019-01-03 13:26 | Outpatient (CLI) | payer MEDICARE, OTHER ==
[2019-01-03 13:31] LABS: BASOPHILS % 0.4 % (0.0-1.5); NEUTROPHILS # 2.9 # k/uL (1.4-7.7)
[2019-01-03 13:33] LABS: eGFR (Non-African) > 60
== END 2019-01-03 13:31 ==
LOC: LAB 13:26
PROVIDERS: ATTEND Family Medicine
DX: R09.02 Hypoxemia (principal); R53.83 Other fatigue; J44.9 Chronic obstructive pulmonary disease, unspecified
CPT/HCPCS: 80053; 85025